=== PATIENT | male | born 1995 | race African-American/Black ===

== ENCOUNTER 2018-12-04 02:05 | Emergency (ER) | payer OTHER ==
[~2018-12-04] VITALS: Ht 185.4 cm; Wt 57.3 kg
[2018-12-04 02:08] VITALS: TEMP 97.7
[2018-12-04] MEDS ORDERED: SINGULAIR 110 MG/TAB PO (02:10)
[2018-12-04] MEDS ORDERED: ZYRTEC 10MG10 MG PO (02:11)
[2018-12-04 02:57] LABS: BASO # 0.1 (0.0-0.2); BASO % 0.6 % (0.0-2.0); EOS # 0.3 (0.0-0.7); EOS % 3.4 % (0-4.0); GRAN # 6.2 (1.4-6.5); GRAN % 73.5 % (42.2-75.2); HEMOGLOBIN 14.4 g/dl (13.5-18.0); LYMPH # 1.2 (1.2-3.4); LYMPH % 13.6 % (20.0-51.0); MEAN CELL VOLUME 88 fl (80.0-100.0); MEAN CORPUSCULAR HEMOGLOBIN 30 pg (27.0-31.0); MEAN CORPUSCULAR HGB CONC 34 g/dl (33.0-37.0); MEAN PLATELET VOLUME 9.3 fl (7.4-10.4); MONO # 0.7 (0.1-0.6); MONO % 8.7 % (1.7-9.3); PLATELET COUNT 264 K/mm3 (130-400); RED BLOOD COUNT 4.76 M/mm3 (4.20-5.60); REDCELL DISTRIBUTION WIDTH-CV 12.5 % (11.5-14.5)
[2018-12-04 03:11] LABS: ALANINE AMINOTRANSFERASE 9 U/L (21-72); ALBUMIN 4.2 gm/dL (3.5-5.0); ALKALINE PHOSPHATASE 56 U/L (50-136); ANION GAP 7 mmol/L (7-16); AST,SGOT 26 U/L (15-37); BILIRUBIN,TOTAL 0.2 mg/dL (0.0-1.0); BLOOD UREA NITROGEN 8 mg/dL (9-20); C-REACTIVE PROTEIN 0.8 mg/dL (0.0-0.9); CALCIUM 9.2 mg/dL (8.4-10.2); CARBON DIOXIDE 28 mmol/L (22-30); CHLORIDE 103 mmol/L (98-107); CREATININE, serum 0.77 (0.66-1.25); GLUCOSE 100 mg/dL (74-106); POTASSIUM 4.2 mmol/L (3.4-5.0); SODIUM 138 mmol/L (137-145); TOTAL PROTEIN 7.5 gm/dL (6.4-8.2)
[2018-12-04 03:16] LABS: ERYTHROCYTE SEDIMENTATION RATE 10 mm/hr (0-15)
[2018-12-04 03:22] LABS: TROPONIN-I < 0.012 ng/mL (0.000-0.035)
[2018-12-04] MEDS ORDERED: PREDNISONE20 MG PO (03:32)
[2018-12-04 03:45] VITALS: BP 109/80; PULSE 52
== END 2018-12-04 03:45 | disposition home or self-care (01) ==
LOC: COL.ER 02:05
PROVIDERS: Physician Assistant
DX: R07.89 Other chest pain (principal); J06.9 Acute upper respiratory infection, unspecified
CPT/HCPCS: J1885